=== PATIENT | male | born 1955 | race Hispanic/Latino ===

== ENCOUNTER 2018-07-14 11:52 | Emergency (ER) | payer OTHER ==
[2018-07-14] MEDS ORDERED: diaZEpam 10 mg/2 ml Inj IVP STA (14:02)
[2018-07-14] MEDS ORDERED: Morphine 4 MG/ML VIAL ONE ×3 (14:29→21:43)
[2018-07-14] MEDS ORDERED: Morphine 4 MG/ML VIAL IVP STA (14:43)
[2018-07-14 15:10] LABS: BLOOD UREA NITROGEN 20 mg/dl (9-20); CALCIUM 9.4 mg/dL (8.4-10.2); GFR NON-AFRICAN AMERICAN > 60
[2018-07-14 15:25] LABS: BASO % 0.6 % (0.0-2.0); EOS # 0.1 K/uL (0.0-0.7); EOS % 1.7 % (0.0-4.0); HEMOGLOBIN 13.5 g/dL (12.0-18.0); LYMPH % 15.7 % (20.0-40.0); MEAN CELL VOLUME 89.6 fl (80.0-94.0); MEAN CORPUSCULAR HEMOGLOBIN 30.7 pg (27.0-31.0); MEAN CORPUSCULAR HGB CONC 34.3 g/dL (33.0-37.0); MEAN PLATELET VOLUME 8.5 fl (7.2-11.7); MONO # 0.6 K/uL (0.0-0.8); MONO % 9.4 % (0.0-10.0); NEUT # 4.6 K/uL (1.8-7.0); NEUT % 72.6 % (50.0-75.0); NRBC % 0.1 % (0.0-0.0); RBC 4.39 Mil/uL (4.40-5.90); RED CELL DISTRIBUTION WIDTH 12.5 % (11.5-14.5); WHITE BLOOD COUNT 6.4 K/uL (4.8-10.8)
[2018-07-14] MEDS ORDERED: Sodium Chloride 0.9% 50 ML IV ONE (15:27)
[2018-07-14] MEDS ORDERED: Iohexol 300 100 ML IJ ONE (15:27)
--- NOTE | 2018-07-14 15:28 | ED PDOC ---
HPI: Back Time Seen by Provider: 07/14/18 13:05 Chief Complaint (Nursing): Back Pain Chief Complaint (Provider): Back Pain History Per: Patient History/Exam Limitations: no limitations Onset/Duration Of Symptoms: Days Current Symptoms Are (Timing): Still Present Additional Complaint(s): Piter Brady is a 63 year old male with no chronic past medical history who is presenting to the ED for evaluation of severe back pain onset last week. Patient states that last Thursday at [facility], he had a laminectomy at , and reports that he has been taking pain meds as prescribed with no relief of symptoms. He states that he has severe pain to right thigh but denies any groin numbness, urinary or fecal incontinence, or upper extremity pain. Patient offers no other medical complaints at this time. Neurosurgeon: Dr. Pascual Barnes PMD: Dr. Calixto Abdullahi Past Medical History Reviewed: Historical Data, Nursing Documentation, Vital Signs Vital Signs: Last Vital Signs Temp 98.2 F 07/14/18 11:57 Pulse 98 H 07/14/18 11:57 Resp 18 07/14/18 11:57 BP 151/87 H 07/14/18 11:57 Pulse Ox 97 07/14/18 11:57 - Medical History PMH: No Chronic Diseases - Surgical History Other surgeries: lamenectomy - Family History Family History: States: Unknown Family Hx - Social History Current smoker - smoking cessation education provided: Yes Alcohol: Social Drugs: Cannabis - Allergies Allergies/Adverse Reactions: Allergies Allergy/AdvReac Type Severity Reaction Status Date / Time No Known Allergies Allergy Verified 07/14/18 11:57 Review of Systems ROS Statement: Except As Marked, All Systems Reviewed And Found Negative Genitourinary Male: Negative for: Dysuria, Frequency, Incontinence, Other (groin pain or numbness) Musculoskeletal: Positive for: Back Pain, Leg Pain Physical Exam - Reviewed Nursing Documentation Reviewed: Yes Vital Signs Reviewed: Yes - Physical Exam Appears: Positive for: Non-toxic, In Acute Distress (mild painful, laying flat on stretcher pain with bumps of stretcher) Head Exam: Positive for: ATRAUMATIC, NORMAL INSPECTION, NORMOCEPHALIC Skin: Positive for: Normal Color, Warm, DRY Eye Exam: Positive for: Normal appearance, EOMI, PERRL ENT: Positive for: Normal ENT Inspection Neck: Positive for: Normal, Painless ROM, Supple Cardiovascular/Chest: Positive for: Regular Rate, Rhythm. Negative for: Murmur Respiratory: Positive for: Normal Breath Sounds. Negative for: Respiratory Distress Gastrointestinal/Abdominal: Positive for: Normal Exam, Soft. Negative for: Tenderness Back: Positive for: Normal Inspection. Negative for: L CVA Tenderness, R CVA Tenderness, Vertebral Tenderness Extremity: Positive for: Other (Unable to sit up or lift legs, but full sensation in legs). Negative for: Normal ROM, Deformity, Swelling Neurologic/Psych: Positive for: Alert, Oriented. Negative for: Motor/Sensory Deficits - Laboratory Results Result Diagrams: 07/14/18 14:22 07/14/18 14:22 - ECG O2 Sat by Pulse Oximetry: 97 (RA) Pulse Ox Interpretation: Normal Medical Decision Making Medical Decision Making: Time: 14:03 A/P: rule out infection at surgical site --Basic labs --CT Lumbar Spine --Morphine and Valium for pain control --Reassess patient 15:00 Patient signed out to Dr. Waddell pending CT, labs, and final disposition. Scribe Attestation: Documented by, Priya Cornejo acting as a scribe for Mariaa Mejia MD. Provider Scribe Attestation: All medical record entries made by the Scribe were at my direction and personally dictated by me. I have reviewed the chart and agree that the record accurately reflects my personal performance of the history, physical exam, medical decision making, and the department course for this patient. I have also personally directed, reviewed, and agree with the discharge instructions and disposition. Disposition - Clinical Impression Clinical Impression: Back pain, Previous back surgery - Disposition Disposition: Transfer of Care Disposition Time: 15:00 Condition: IMPROVED Additional Instructions: Follow up with your surgeon tomorrow. PITER BRADY, thank you for letting us take care of you today. Your pro vider was Alethea Waddell MD and you were treated for BACK PAIN. The emergency medical care you received today was directed at your acute symptoms. If you were prescribed any medication, please fill it and take as directed. It may take several days for your symptoms to resolve. Return to the Emergency Department if your symptoms worsen, do not improve, or if you have any other problems. Please contact your doctor or call one of the physicians/clinics you have been referred to that are listed on the Patient Visit Information form that is included in your discharge packet. Bring any paperwork you were given at discharge with you along with any medications you are taking to your follow up visit. Our treatment cannot replace ongoing medical care by a primary care provider outside of the emergency department. Thank you for allowing the [facility] team to be part of your care today. If you had an X-Ray or CT scan: A Radiologist will review the ED reading if any change in treatment is needed we will contact you. If you had a blood, urine, or wound culture: It will take several days for the results, if any change in treatment is needed we will contact you. If you had an STI test: It will take 48 hours for the results. Please call after 1 week if you have not heard back. Instructions: Low Back Pain (DC)
--- NOTE | 2018-07-14 15:40 | ED PDOC ---
- Laboratory Results Result Diagrams: 07/14/18 14:22 07/14/18 14:22 - ECG O2 Sat by Pulse Oximetry: 97 (RA) Pulse Ox Interpretation: Normal - Progress Re-evaluation Time: 21:02 (Ambulated with steady gait) Condition: Re-examined, Improved Medical Decision Making Medical Decision Making: Time: 1500 -- Patient endorsed to me by Dr. Mejia, pending CT spine, re-evaluation and final ER disposition. Time: 174 CT LUMBAR SPINE RESULTS FINDINGS: VERTEBRAE: Unremarkable. No fracture. Normal alignment. DISCS/SPINAL CANAL/NEURAL FORAMINA: L1-2: Bulging annulus without focal disc herniation. Portions of the disc material is calcified centrally. Associated vacuum disc phenomenon. Osteophytes projecting primarily off the inferior aspect of the L1 vertebral body noted. L2-3: Unremarkable. L3-4: Bulging annulus identified without focal disc herniation. L4-5: Nondiagnostic assessment based on the presence of orthopedic hardware. This includes interpedicular screws and disc space prosthesis. L5-S1: Nondiagnostic assessment of the disc space based on orthopedic hardware primarily interpedicular screws. PARASPINAL SOFT TISSUES: Between the skin and paravertebral structures. OTHER FINDINGS: Simple cyst right kidney 3 x 3.5 cm. Additional smaller peripheral cyst right kidney. 2 mm calculus right kidney. IMPRESSION: Limited study based on streak artifact from orthopedic hardware status post lumbar laminectomy. Hardware is identified at L3, L4, L5. Disc prosthesis/disc pcb design engineer noted at L4-5. Presumed postoperative changes Scribe Attestation: Documented by Samara Barba, acting as a scribe for Alethea Waddell MD. Provider Scribe Attestation: All medical record entries made by the Scribe were at my direction and personal ly dictated by me. I have reviewed the chart and agree that the record accurately reflects my personal performance of the medical decision making, department course and disposition for this patient. I have also personally directed, reviewed, and agree with the discharge instructions and disposition. Disposition Counseled Patient/Family Regarding: Studies Performed, Diagnosis - Clinical Impression Clinical Impression: Back pain, Previous back surgery - POA Present On Arrival: None - Disposition Disposition: Routine/Home Disposition Time: 21:02 Condition: IMPROVED Additional Instructions: Follow up with your surgeon tomorrow. PITER DAY, thank you for letting us take care of you today. Your provider was Alethea Waddell MD and you were treated for BACK PAIN. The emergency medical care you received today was directed at your acute symptoms. If you were prescribed any medication, please fill it and take as directed. It may take several days for your symptoms to resolve. Return to the Emergency Department if your symptoms worsen, do not improve, or if you have any other problems. Please contact your doctor or call one of the physicians/clinics you have been referred to that are listed on the Patient Visit Information form that is included in your discharge packet. Bring any paperwork you were given at discharge with you along with any medications you are taking to your follow up visit. Our treatment cannot replace ongoing medical care by a primary care provider outside of the emergency department. [facility] you [facility] your care today. If you had an X-Ray or CT scan: A Radiologist will review the ED reading if any change in treatment is needed we will contact you. If you had a blood, urine, or wound culture: It will take several days for the results, if any change in treatment is needed we will contact you. If you had an STI test: It will take 48 hours for the results. Please call after 1 week if you have not heard back. Instructions: Low Back Pain (DC)
[2018-07-14] MEDS ORDERED: Morphine 4 MG/ML VIAL IVP ONE ×2 (16:31→21:39)
--- NOTE | 2018-07-14 17:49 | CT ---
Date of service: 07/14/2018 PROCEDURE: CT Lumbar Spine without contrast HISTORY: worsened pain s/p laminectomy. COMPARISON: None available. TECHNIQUE: Axial computed tomography images were obtained of the lumbar spine without the use of intravenous contrast. Coronal and sagittal reformatted images were created and reviewed. 100 cc Omnipaque 300 administered intravenously. Radiation dose: Total exam DLP = 1351.73 mGy-cm. This CT exam was performed using one or more of the following dose reduction techniques: Automated exposure control, adjustment of the mA and/or kV according to patient size, and/or use of iterative reconstruction technique. FINDINGS: VERTEBRAE: Unremarkable. No fracture. Normal alignment. DISCS/SPINAL CANAL/NEURAL FORAMINA: L1-2: Bulging annulus without focal disc herniation. Portions of the disc material is calcified centrally. Associated vacuum disc phenomenon. Osteophytes projecting primarily off the inferior aspect of the L1 vertebral body noted. L2-3: Unremarkable. L3-4: Bulging annulus identified without focal disc herniation. L4-5: Nondiagnostic assessment based on the presence of orthopedic hardware. This includes interpedicular screws and disc space prosthesis. L5-S1: Nondiagnostic assessment of the disc space based on orthopedic hardware primarily interpedicular screws. PARASPINAL SOFT TISSUES: Between the skin and paravertebral structures. OTHER FINDINGS: Simple cyst right kidney 3 x 3.5 cm. Additional smaller peripheral cyst right kidney. 2 mm calculus right kidney. IMPRESSION: Limited study based on streak artifact from orthopedic hardware status post lumbar laminectomy. Hardware is identified at L3, L4, L5. Disc prosthesis/disc director on air noted at L4-5. Presumed postoperative changes
[2018-07-14 18:36] VITALS: O2SAT 97
[2018-07-14 21:15] VITALS: BP 161/89; PULSE 104; RESP 16; TEMP 98.3
== END 2018-07-14 22:00 | disposition home or self-care (01) ==
LOC: H.ER 11:52
DX: M54.9 Dorsalgia, unspecified (principal)
CPT/HCPCS: 72132; 80048; 85025; 96374; 96375; 96376; 99284; J1885; J2270; Q9967